=== PATIENT | female | born 1985 | race Caucasian/White ===

== ENCOUNTER → 2018-01-21 15:42 | Outpatient (CLI) | payer BC, SELFPAY ==
[2018-01-27 13:26] LABS: HPV Reflexed? NOT INDICATED
== END ==
PROVIDERS: Visit Provider Obstetrics & Gynecology
DX: Z12.4 Encounter for screening for malignant neoplasm of cervix (principal)
CPT/HCPCS: 88175; G0145

== ENCOUNTER 2018-03-20 10:57 | Day surgery (SDC) | payer BC, SELFPAY ==
[2018-03-20 11:18] LABS: Internal QC Validated? YES +Cl - CLEAR BKGD; Pregnancy, Urine Negative Negative
[2018-03-20 12:12] VITALS: BP 119/70; PULSE 74; RESP 14; TEMP 36.3; O2SAT 99; BMI 28.8
--- NOTE | 2018-03-20 12:39 | DCINST_ITS ---
Discharge Diet: Light diet - advance as tolerated Discharge Activity: Return to Normal Activity Instructions: Treating Kidney Stones: Ureteroscopic Stone Removal Allergies/Adverse Reactions: Allergies No Known Allergies Allergy (Verified 11/24/14 11:23) Medications to take at Discharge Ascorbic Acid/Multivit-Min [Emergen-C 1,000 mg Packet] 1,000 mg PO DAILY 03/17/18 Hydrocodone/Acetaminophen [[place] 5-325 Tablet] 1 each PO Q6H PRN PRN 03/17/18 Acetaminophen [Tylenol Extra Strength] 500 mg PO Q4H PRN PRN #20 tablet 03/20/18 Ibuprofen 600 mg PO Q6H PRN PRN #20 tablet 03/20/18 The following prescriptions were given: Acetaminophen [Tylenol Extra Strength] 500 mg PO Q4H PRN PRN #20 tablet PRN Reason: Pain Ibuprofen 600 mg PO Q6H PRN PRN #20 tablet PRN Reason: Pain Primary Care Physician: Care Physician,No Primary [Primary Care Provider] - Test Results: Test results from this visit will be discussed in further detail at your follow- up appointment, if applicable. Please Follow Up With: Pacheco Mae MD When: in 2 weeks, please call to make an appointment.
[2018-03-20] MEDS: Cefazolin 2 GM in 0.9% Normal Saline 100 ML IV (12:47)
--- NOTE | 2018-03-20 13:14 | PCM.OPRPT ---
Report of Operation Date of Procedure: 03/20/18 Pre-Operative Diagnosis: Right ureteral calculi causing obstruction Post-Operative Diagnosis: Same Surgery/Procedure Performed:: Cystoscopy, balloon dilation of the right ureter, right ureteroscopy laser lithotripsy of stone, basket of fragments, no stent placed Description of Surgical Findings:: 32-year-old female taken back to the operating room at the smooth induction of general anesthesia placed supine on the table in the dorsolithotomy position, that the urethra vaginal area prepped and draped in usual sterile fashion went of the bladder with a 21 [place] rigid cystourethroscope identified the right ureteral orifice which is fairly inflamed and edematous. I then cannulated the right ureteral orifice with a wire the wire went up I could feel the wire hit the stone and the wire went past the stone without any problems over the wire then I advanced the balloon dilator is a 12 [place] 10 cm balloon dilator then balloon dilated the distal ureter up to the stone and then I removed the balloon dilator left the wire in place and then next the wire I went in with a Olympus SlimLine ureteroscope was able to get into the distal ureter quite easily I then found the stone we did one attempt to basket the stone but it was fairly stuck in the ureter would not be basketball so therefore I went back in with the laser I used a 200 ?m laser fiber and lasered the stone little tiny pieces and the stone broke up quite easily once the stone fragments were broken that I used the basket to break to grab these fragments pulled into the bladder after extracting all the stone fragments went back up the ureter there was no perforation injury or trauma to the ureter and a wide open channel no blockage so decided not to leave a stent and backed out the ureter remove the safety wire and drain the bladder patient anesthetic was reversed plan to see her back in a few weeks for checkup. Type of Anesthesia:: General Drains: none - Admit VTE Documentation VTE Present on Admission: No VTE Mechan Device Prophylaxis: SCD's
[2018-03-20 13:27] VITALS: BP 119/70; BP 120/83; PULSE 68; RESP 16; TEMP 36.5; O2SAT 97
[2018-03-20] MEDS: Ketorolac 15 MG/ML Vial IV (13:41)
[2018-03-20 13:45] VITALS: BP 119/70; BP 129/88; PULSE 68; RESP 16; O2SAT 100
[2018-03-20 14:00] VITALS: BP 119/70; BP 128/84; PULSE 68; RESP 16; TEMP 36.6; O2SAT 99
[2018-03-20 14:57] VITALS: BP 119/70
[2018-03-20 14:58] VITALS: BP 119/70
== END 2018-03-20 15:00 | disposition home or self-care (01) ==
LOC: SDC 10:58 → AC 10:59
PROVIDERS: Anesthesiology; Referring Provider Urology; Visit Provider Urology
PROC: (CPT 52356; principal; 2018-03-20 12:50)
DX: N20.1 Calculus of ureter (principal); R31.9 Hematuria, unspecified; R35.0 Frequency of micturition; Z87.442 Personal history of urinary calculi
CPT/HCPCS: 52353; 81025; J7120; C1769; J2405

== ENCOUNTER → 2019-02-24 17:20 | Outpatient (CLI) | payer BC, SELFPAY ==
[2019-02-25 01:02] LABS: Chlamydia Trachomatis by PCR Negative (Negative); Neisserai gonorrhoeae by PCR Negative (Negative); Probe Check PASS; Sample Adequacy Control PASS; Specimen Processing Control PASS
== END ==
PROVIDERS: Visit Provider Obstetrics & Gynecology
DX: Z11.3 Encounter for screening for infections with a predominantly sexual mode of transmission (principal)
CPT/HCPCS: 87491; 87591

== ENCOUNTER → 2019-03-09 10:40 | Outpatient (CLI) | payer BC, SELFPAY ==
[2019-03-09 13:43] LABS: Absolute Neutrophil Count 4.2 X10^3/uL (2.0-7.7); Basophil# 0.01 X10^3/uL; Basophil% 0.1 % (0-1); Eosinophil# 0.04 X10^3/uL; Eosinophils% 0.6 % (0-5); Hematocrit 40.8 % (37-47); Hemoglobin 13.3 g/dL (12.0-15.0); Lymphocyte % 29.1 % (19-41); Mean Corp Hgb Conc 32.6 g/dL (32-36); Mean Corpuscular Hgb 26.8 pg (27.0-32.0); Mean Corpuscular Volume 82.3 fL (81-99); Mean Platelet Vol. 10.7 fl (6.2-12.0); Monocyte% 8.7 % (0-10); NRBC Flagged by Analyzer 0 % (0-5); Neutrophil # 4.22 X10^3/uL (2.7-7.7); Neutrophil % 61.4 % (47-70); Platelet Count 209 K/mm3 (150-450); RBC Distribution Width CV 16.1 % (11.6-14.6); RBC Distribution Width SD 48.4 fl (35.1-43.9); Red Blood Count 4.96 M/mm3 (4.2-5.4); White Blood Count 6.9 K/mm3 (4.4-11.0)
[2019-03-09 14:01] LABS: Color, Urine Yellow (Yellow); Glucose, Dipstick Normal (Normal); Ketone-Dipstick Negative (Negative); Leukocyte Esterase-Dipstick Negative /ul (Negative); Nitrite-Dipstick Negative (Negative); Occult Blood-Urine Negative /ul (Negative); Protein-Dipstick Negative (Negative); Specific Gravity, Urine 1.015 (1.002-1.030); Urine Bilirubin Dipstick Negative (Negative); Urine Clarity Sl. Cloudy (Clear); Urine Urobilinogen Normal (Normal)
[2019-03-09 14:02] LABS: Thyroid Stim Hormone (TSH) 3.38 uIU/mL (0.358-3.74)
[2019-03-09 14:43] LABS: HIV - WCH Non-Reactive (Nonreactive); Hepatitis B Surface Antigen Non-Reactive (Nonreactive); Hepatitis C Antibody Non-Reactive (Nonreactive); Rubella IgG 106.3 IU/mL
[2019-03-10 12:24] LABS: Toxoplasma Gondii IgG < 3.0 IU/mL (0.0-7.1); Toxoplasma Gondii IgM < 3.0 AU/mL (0.0-7.9)
[2019-03-11 03:07] LABS: Prenatal RPR NONREACTIVE (NONREACTIVE)
== END ==
PROVIDERS: Visit Provider Obstetrics & Gynecology
DX: Z34.81 Encounter for supervision of other normal pregnancy, first trimester (principal)
CPT/HCPCS: 36415; 81002; 84443; 85025; 86703; 86762; 86777; 86778; 86803; 87340

== ENCOUNTER → 2019-07-29 09:43 | Outpatient (CLI) | payer BC, SELFPAY ==
[2019-07-29 12:12] LABS: Glucose Challenge Gest 1H 50g 86 mg/dL (70-140)
[2019-07-29 12:35] LABS: Hematocrit 36.9 % (37-47); Hemoglobin 11.8 g/dL (12.0-15.0); Mean Corpuscular Hgb 29.8 pg (27.0-32.0); Mean Corpuscular Volume 93.2 fL (81-99); Mean Platelet Vol. 11.5 fl (6.2-12.0); Platelet Count 176 K/mm3 (150-450); RBC Distribution Width SD 47.8 fl (35.1-43.9); Red Blood Count 3.96 M/mm3 (4.2-5.4); White Blood Count 7.6 K/mm3 (4.4-11.0)
== END ==
PROVIDERS: Visit Provider Obstetrics & Gynecology
DX: Z34.83 Encounter for supervision of other normal pregnancy, third trimester (principal)
CPT/HCPCS: 36415; 82950; 85027; 86850

== ENCOUNTER → 2019-09-23 | Outpatient (CLI) | payer BC, SELFPAY | END | disposition home or self-care (01) | LOC: LABSPEC 11:49 | PROVIDERS: Referring Provider Obstetrics & Gynecology; Visit Provider Obstetrics & Gynecology | DX: Z36.85 Encounter for antenatal screening for Streptococcus B (principal) | CPT/HCPCS: 87081 ==

== ENCOUNTER → 2019-10-14 | Outpatient (CLI) | payer BC, SELFPAY | END | disposition home or self-care (01) | LOC: LABSPEC 13:04 | PROVIDERS: Referring Provider Obstetrics & Gynecology; Visit Provider Obstetrics & Gynecology | DX: Z11.59 Encounter for screening for other viral diseases (principal) | CPT/HCPCS: 87635; G2023; U0003 ==

== ENCOUNTER 2019-10-18 07:00 | Inpatient (IN) | payer BC, SELFPAY ==
[2019-10-18] VITALS (48 sets, daily range): BP systolic 128–174; BP diastolic 56–93; PULSE 68–90; RESP 16; TEMP 36.3–37.2; O2SAT 83–99; BMI 31.1
[2019-10-18] MEDS: Lactated Ringers 1,000 ML 50 ML IV (07:30)
--- NOTE | 2019-10-18 07:45 | PCM.HP.OB ---
- Problem List (1) 40 weeks gestation of Status: Acute (2) hydronephrosis during , antepartum Status: Acute Qualifiers: Fetus number: single or unspecified fetus Qualified Code(s): O35.8XX0 - Maternal care for other (suspected) abnormality and damage, not applicable or unspecified History Date of Admission: 10/18/19 Final COTY: 10/18/19 Final COTY Source: [place] <20 weeks Gestational age: 40 Weeks and 0 Days History of this : This is a 33 year-old, G [3], P [2], at 40 weeks gestational age. Medical IOL for AMA, mildly elevated BP and left hydronephrosis. Allergies No Known Allergies Allergy (Verified 11/24/14 11:23) Home Medications: Home Medications Famotidine [Pepcid] 20 mg PO PRN PRN 10/18/19 Vits [Prenatabs FA] 1 tab PO DAILY 10/18/19 Smoking Status: Never smoker Alcohol: None Number of Fetus(es): 1 NST - FHR Rate Baby A Baseline: 130 Variability:: Moderate Accelerations:: 15 x 15 Decelerations:: None NST Reactive:: Yes FHR Category:: Category I Uterine Activity:: Q9-11m History Past Pregnancies: PRIOR DELIVERY HISTORY DEL DATE GEST LAB WT LB WT OZ TYPE ANES LABOR TX Oct 26 40 7 9 3 Vag Epidural No Nov 23 41 7 7 11 Vag Epidural No Expected Infant Delivery Method: Spontaneous Vaginal Number of Visits: 12 Review of Systems Constitutional: Denies: Chills, Fever, Weight Change HEENT: Denies: Head Aches, Sinus Congestion, Sinus Drainage Cardiovascular: Denies: Chest Pain, Palpitations Respiratory: Denies: Cough, Shortness of breath at rest, Sputum production Gastrointestinal: Denies: Abdominal Pain, Nausea, Vomiting Genitourinary: Denies: Dysuria Musculoskeletal: Denies: Joint Pain, Joint Tenderness Skin: Denies: Rash, Wounds Neurological: Denies: Numbness, Tingling, Focal weakness Psychiatric: Denies: Anxiety, Depression, Homicidal Ideations, Suicidal Ideations Hematologic/ Lymphatic: Denies: Easy Bruising, Easy Bleeding Physical Exam Vitals: Vital Signs Pulse BP 86 138/86 H 10/18/19 07:44 10/18/19 07:44 General: Alert, Oriented x3, No apparent distress HEENT: Atraumatic, Normocephalic. Negative for: Thyromegaly, Lymphadenopathy Cardiovascular: Regular rate, Regular Rhythm Lungs: Clear to auscultation Abdomen: Bowel Sounds Present, Gravid Neurological: Deep Tendon Reflexes 2+/4 and Symmetrical, Neuro grossly intact PRODUCTION SUPPORT ENGINEER: Normal external genitalia. Negative for: Vulvar lesions Estimated gestational size: Appropriate for gestational size Presentation: Cephalic Cervix Dilation (cm): 2 Station: -3 Effacement (%): 50 Assessment/Plan All Active Problems 40 weeks gestation of (Acute) hydronephrosis during , antepartum (Acute) This is a 33 year-old, G [3], P [2], at 40 weeks gestational age. IOL for AMA, mildly elevated BP, and left hydronephrosis NST reactive, Category I UC Q9-11m, reports have been very irregular for 48 hours now SVE 2-3/50/high soft midposition Pitocin initiated, will AROM when head descends Plans in place for
[2019-10-18 07:57] LABS: Absolute Lymphocyte Count 1.57 X10^3/uL (0.83-4.51); Absolute Neutrophil Count 4.9 X10^3/uL (2.0-7.7); Basophil# 0.02 X10^3/uL; Basophil% 0.3 % (0-1); Eosinophil# 0.05 X10^3/uL; Eosinophils% 0.7 % (0-5); Hemoglobin 12.2 g/dL (12.0-15.0); Lymphocyte # 1.57 X10^3/ul (4.0); Lymphocyte % 21.6 % (19-41); Mean Corpuscular Volume 90.9 fL (81-99); Mean Platelet Vol. 11.7 fl (6.2-12.0); Monocyte# 0.65 X10^3/uL; Monocyte% 8.9 % (0-10); NRBC Flagged by Analyzer 0 % (0-5); Neutrophil # 4.92 X10^3/uL (2.7-7.7); Neutrophil % 67.7 % (47-70); Platelet Count 150 K/mm3 (150-450); RBC Distribution Width CV 14.2 % (11.6-14.6); RBC Distribution Width SD 47.1 fl (35.1-43.9); Red Blood Count 4.07 M/mm3 (4.2-5.4); White Blood Count 7.3 K/mm3 (4.4-11.0)
[2019-10-18] MEDS: Oxytocin 30 units/NS 500 ml 30 UNITS/500 ML IV.SOLN IV (07:58)
[2019-10-18] MEDS: Lactated Ringers 500 ML 999 ML IV ×2 (09:10→12:25)
[2019-10-18] MEDS: fentaNYL-bupivacaine (epidural) 100 ML BAG EPIDURAL (10:39)
[2019-10-18] MEDS: Mag Hydrox/Al Hydrox/Simeth 30 ML UDC PO (10:47)
[2019-10-18] MEDS: Oxytocin 30 units/NS 500 ml 30 UNITS/500 ML IV.SOLN 334 UNITS IV (12:57)
--- NOTE | 2019-10-18 13:18 | PCM.OPRPT ---
Problem List (1) 40 weeks gestation of Status: Acute (2) hydronephrosis during , antepartum Status: Acute Qualifiers: Fetus number: single or unspecified fetus Qualified Code(s): O35.8XX0 - Maternal care for other (suspected) abnormality and damage, not applicable or unspecified Vaginal Delivery Maternal Presentation: Medically Indicated Induction Method of Induction: Amniotomy Medical Reason for Induction: - - Term delivery, AMA Amniotic Membrane Rupture Type: Spontaneous Amniotic Fluid Description: Lightly stained meconium Final COTY: 10/18/19 Gestational age: 40 Weeks and 1 Days Date of Procedure: 10/18/19 Pre-Operative Diagnosis: IOL Post-Operative Diagnosis: S/P Surgery/ Procedure Performed: Spontaneous Vaginal Delivery Type of Anesthesia: Epidural Description of Procedure: Patient had spontaneous urge to push and 10/100/+2. With six pushes head delivered in OA to VASU followed spontaneously by body. The male was placed on the maternal abdomen and further attended by nursery personnel with bulb suction and stimulation. The cord was doubly clamped then cut by FOB under CNM supervision at approximately 1 minute of life. Cord blood collected. IV Pitocin started per protocol. With gentle cord traction spontaneous delivery of placenta. Fundal massage given. Fundus noted to be firm and midline. Right labial skid hennessy noted with good hemostasis. EBL 100. Sponge and needle count correct x2. Apgars 9/9. One hour after delivery, RN called conventional underwriter with report of three quarter size clots being expressed with fundal massage and IM Methergine given. CNM to room to assess bleeding. Upon arrival infant was nursing at the breast. Manual expression of three more quarter size clots with palpable empty uterine cavity. Total EBL 350. Presentation: Vertex, VASU Placental Delivery Description: Spontaneous Placenta Disposition: [facility] Cord Vessel Description: 3 Vessels Cord Entanglement: None Drain: Brandt to straight drain Estimated Blood Loss: 350 Infant A gender: Male (1 minute): 9 (5 minute): 9 Episiotomy Description: None Laceration: None Medications given after delivery: IV Pitocin, IM Methergin
[2019-10-18] MEDS: Methylergonovine 0.2 MG/ML Ampul IM (13:40)
[2019-10-18] MEDS: Oxytocin 30 units/NS 500 ml 30 UNITS/500 ML IV.SOLN 167 UNITS IV (14:07)
[2019-10-18] MEDS: 0.9% Saline Lock 10 ML Syringe IV (17:39)
[2019-10-18] MEDS: Acetaminophen 500 MG Tablet 1000 MG PO (20:03)
[2019-10-19] VITALS (10 sets, daily range): BP systolic 131–144; BP diastolic 80–86; PULSE 76–80; RESP 14–18; TEMP 36.4–37.2; O2SAT 96–98
--- NOTE | 2019-10-19 07:42 | PN.OBGYN_ITS ---
Patient Problems: Active and Suspected Problems 40 weeks gestation of (Acute) hydronephrosis during , antepartum (Acute) Subjective: Feeling good this morning. Having uterine cramps with , but using Motrin. Reports is going well. Denies heavy bleeding since she was scooped out. Feels well enough to go home today, but not sure not. Will decide this afternoon. Objective: VSS. Fundus is firm, u/1. Lochia rubra scant. - Physical Exam Vitals/I&O's: Vital Signs Temp Pulse Resp BP Pulse Ox 99 F 76 14 135/86 H 98 10/19/19 03:42 10/19/19 03:42 10/19/19 03:42 10/19/19 03:42 10/18/19 19:55 Oxygen Delivery Method Room Air Weight: 95.708 kg Body Mass Index (BMI) 31.1 Intake and Output for Last 24 Hours 10/17/19 10/18/19 10/19/19 23:59 23:59 23:59 Intake Total 3357.17 / 3357.17 Output Total 2600 / 2600 Balance 757.17 / 757.17 General: Alert, Oriented x3, Cooperative HEENT: Atraumatic, PERRLA, EOMI, Normocephalic Neck: Supple, No JVD, Negative Carotid Bruits Lungs: Clear to auscultation, Normal air movement Cardiovascular: Regular rate, No murmurs Abdomen: Bowel Sounds Present, Soft, Non Tender, - - fundus u/1 Extremities: No edema, Capillary Refill Less than 3 Seconds Skin: No rashes, No breakdown Musculoskeletal: No Tenderness to Palpation of Joints or Extremities Neurological: Cranial nerves II-XII grossly intact Psych/Mental Status: Normal Affect, Appropriate Laboratory Results 10/18/19 07:30: WBC 7.3, RBC 4.07 L, Hgb 12.2, Hct 37.0, MCV 90.9, MCH 30.0, MCHC 33.0, RDW Std Deviation 47.1 H, RDW Coeff of Caroline 14.2, Plt Count 150, MPV 11.7, Immature Gran % (Auto) 0.800, Neut % (Auto) 67.7, Lymph % (Auto) 21.6, [place] % (Auto) 8.9, Eos % (Auto) 0.7, Baso % (Auto) 0.3, Absolute Neuts (auto) 4.9, Absolute Lymphs (auto) 1.57, Nucleated RBC % 0 10/18/19 07:30: Blood Type A NEGATIVE, Antibody Screen NEGATIVE 10/18/19 15:50: Screen NEGATIVE, Baby's Blood Type O POSITIVE, Baby's MARTINA NEGATIVE Current Medications Acetaminophen (Tylenol) 1,000 mg PO Q8H PRN PRN PRN Reason: Pain Score 1-3/10 Last Admin: 10/18/19 20:03 Dose: 1,000 mg Documented by: Bisacodyl (Dulcolax) 10 mg RECTAL UD PRN PRN Reason: If no BM Hydrocortisone (Hytone) 1 applic TOPICAL TID PRN PRN; Protocol PRN Reason: Discomfort Ibuprofen (Motrin) 600 mg PO Q6H PRN PRN PRN Reason: Pain Score 1-3/10 Methylergonovine Maleate (Methergine) 0.2 mg IM X1 PRN PRN Reason: Excess bleeding/uterine atony Last Admin: 10/18/19 13:40 Dose: 0.2 mg Documented by: Ondansetron HCl (Zofran) 4 mg IV Q4H PRN PRN PRN Reason: Nausea Senna/Docusate Sodium (Senokot-S, Bela-Colace) 1 - 2 tablet PO DAILY PRN PRN PRN Reason: Constipation Simethicone (Mylicon) 80 mg PO PCHS PRN PRN Reason: Indigestion/Stomach pain Sodium Chloride () 5 - 15 ml IV UD PRN PRN Reason: SALINE FLUSH Last Admin: 10/18/19 17:39 Dose: 10 ml Documented by: Throat Lozenges (Dermoplast (Sp)) 1 applic TOPICAL 4X/DAY PRN PRN; Protocol PRN Reason: Pain/Inflammation Medical Necessity - Tobacco Use Smoking Status: Never smoker Assessment/Plan All Active Problems 40 weeks gestation of (Acute) hydronephrosis during , antepartum (Acute) A/P: S/P vaginal delivery day #1 mother, going well Uterine cramping well controlled with Motrin Lochia rubra scant Son to be circumcised today with 24H testing May want to discharge home today Will check back in later to determine discharge Dyad stable Maintain routine orders
--- NOTE | 2019-10-19 07:47 | DCINST_ITS ---
Discharge Diet: No Restrictions Discharge Activity: Return to Normal Activity, May not drive while taking narcotic pain medications., May Shower May resume sexual activity in: 4-6 weeks Additional Activity Instructions:: Nothing in the vagina for 4-6 weeks. You may return to work/school in 6 weeks. Call your doctor if your incision/area has: Continuous Slow Oozing, Sudden Increased Bleeding, Increased Pain/ Swelling, Increased Redness, Foul Smelling Discharge Additional Instructions: If you experience any of the following, contact your healthcare provider. * Bleeding that soaks a pad every hour for 2 hours * Fever 100.4 or higher * Unrelieved incision or abdominal pain * Swelling, redness, discharge or bleeding from your incision or episiotomy site * Your incision begins to separate * Problems urinating (including inability to urinate or burning while urinating). * Visual changes * Severe headache * Flu-like symptoms * Pain or redness in one of both of your breasts * Pain, warmth, tenderness or swelling in your legs, especially the calf area * Frequent nausea and vomiting * Symptoms of depression or anxiety If you experience any of the following, call 911 or go to the nearest Emergency Room. * Chest pain * Problems breathing * Seizure activity * Partial or complete paralysis of a body part, slurred speech, weakness or drooping of the face, or a sudden inability to walk or hold your balance Allergies/Adverse Reactions: Allergies No Known Allergies Allergy (Verified 11/24/14 11:23) Medications to take at Discharge Famotidine [Pepcid] 20 mg PO PRN PRN 10/18/19 Vits [Prenatabs FA] 1 tab PO DAILY 10/18/19 Please Follow Up With: Aman Greenberg MD When: Call to make an appointment with your doctor in 6 weeks. Primary Care Physician: Care Physician,No Primary [Primary Care Provider] - Test Results: Test results from this visit will be discussed in further detail at your follow- up appointment, if applicable.
[2019-10-19] MEDS: Ibuprofen 600 MG Tablet PO ×2 (09:19→15:49)
--- NOTE | 2019-10-19 09:25 | NURSING ---
Pt notes slight frontal GARCIA behind her eyes; no symptoms of preeclampsia; assessment WNL. NO clonus noted, bilateral biceps and patellar reflexes +2, no swelling noted.
== END 2019-10-19 21:45 | disposition home or self-care (01) | DRG 807 ==
PROVIDERS: Admitting Provider Obstetrics & Gynecology; Referring Provider Obstetrics & Gynecology; Visit Provider Obstetrics & Gynecology
DX: O35.8XX0 Maternal care for other (suspected) fetal abnormality and damage, not applicable or unspecified (principal); Z37.0 Single live birth; Z3A.40 40 weeks gestation of pregnancy; O77.0 Labor and delivery complicated by meconium in amniotic fluid
CPT/HCPCS: 59025; 59050; 85025; 85461; 86850; 86900; 86901; 90384; 99218; J7120; A4216; G0378; J2790